=== PATIENT | female | born 1995 | race Caucasian/White ===

== ENCOUNTER 2016-10-11 18:51 | Emergency (ER) | payer OTHER ==
[~2016-10-11] VITALS: Ht 157.5 cm; Wt 69.0 kg
[2016-10-11] MEDS ORDERED: PNV11TAB PO (18:56)
[2016-10-11 20:32] LABS: BASOPHILS % (AUTO) 0.2 % (0.0-2.0); EOSINOPHILS % (AUTO) 1.1 % (1.0-6.0); HEMATOCRIT 38.9 % (36-46); HEMOGLOBIN 12.8 g/dL (12.0-16.0); LYMPHOCYTES # (AUTO) 1.8 K/uL (1.0-4.8); LYMPHOCYTES % (AUTO) 18.7 % (22.0-44.0); MEAN CORPUSCULAR HEMOGLOBIN 30.2 pg (26.0-34.0); MEAN CORPUSCULAR HGB CONC 32.9 G/dL (31.0-37.0); MEAN CORPUSCULAR VOLUME 92 fL (80-100); MONOCYTES # (AUTO) 0.5 K/uL (0.1-1.0); MONOCYTES % (AUTO) 5.5 % (2.0-9.0); NEUTROPHILS # (AUTO) 7.1 K/uL (1.8-7.7); NEUTROPHILS % (AUTO) 74.5 % (40.0-70.0); PLATELET COUNT (AUTO) 246 K/uL (150-450); RED BLOOD CELL COUNT(AUTO) 4.23 MIL/uL (4.00-5.20); RED CELL DISTRIBUTION WIDTH 13.9 % (11.5-14.5); WHITE BLOOD COUNT (AUTO) 9.5 K/uL (4.5-11.0)
[2016-10-11 20:41] LABS: ANION GAP 8 mmol/L (8-16); CARBON DIOXIDE 26 mmol/L (22-29); CHLORIDE 104 mmol/L (98-107); CREATININE 0.44 mg/dL (0.60-1.30); GLOMERULAR FILTR. RATE CALC > 60 mL/min (>60); POTASSIUM 3.7 mmol/L (3.5-5.1); SODIUM SERUM 138 mmol/L (136-145); UREA NITROGEN, BLOOD 4 mg/dL (7-18)
[2016-10-11 21:08] LABS: ALANINE AMINOTRANSFERASE 23 U/L (12-78); ALBUMIN 3.4 g/dL (3.4-5.0); ASPARTATE AMINOTRANSFERASE 11 U/L (15-37); BILIRUBIN,TOTAL 0.1 mg/dL (0.1-1.0); TOTAL PROTEIN, SERUM 7.3 g/dL (6.4-8.2)
[2016-10-11 21:37] LABS: ADD UA MICROSCOPIC YES; APPEARANCE,URINE CLOUDY (CLEAR); GLUCOSE, URINE (UA) NEGATIVE (NEGATIVE); KETONES,URINE NEGATIVE (NEGATIVE); LEUKOCYTE ESTERASE ,URINE MODERATE (NEGATIVE); OCCULT BLOOD,URINE NEGATIVE (NEGATIVE); PH,URINE 7.5 (5.0-8.0); PROTEIN,URINE NEGATIVE (NEGATIVE)
[2016-10-11 21:48] LABS: SQUAMOUS EPITHELIAL CELL,UR Many /LPF (None Seen)
[2016-10-11 21:49] LABS: RBC,URINE 0-2 /HPF (0-2)
[2016-10-11 22:08] VITALS: BP 111/76
== END 2016-10-11 22:13 | disposition home or self-care (01) ==
LOC: EMS 18:53
DX: O26.92 Pregnancy related conditions, unspecified, second trimester (principal); R07.9 Chest pain, unspecified; Z3A.17 17 weeks gestation of pregnancy
CPT/HCPCS: 87086; 93005; 99285